=== PATIENT | female | born 1960 | race Caucasian/White ===

== ENCOUNTER 2019-12-10 11:23 | Outpatient (CLI) | payer OTHER, BC, SELFPAY ==
--- NOTE | ~2019-12-10 | MR_ITS ---
EXAMINATION: MR shoulder LT wo con DATE: 12/10/2019 12:26 INDICATION: Left shoulder pain and weakness TECHNIQUE: Magnetic resonance imaging (MRI) of the left shoulder was performed without intravenous co ntrast. Sequences included axial PD-weighted FS FSE, coronal oblique PD-weighted FS FSE, coronal obli que T2-weighted FS FSE, sagittal PD-weighted FS FSE, and sagittal T1-weighted SE. COMPARISON: 06/04/19 FINDINGS: There is motion artifact or blurring to some degree on all sequences which moderately limits the curr ent study. Coracoacromial arch: The acromion undersurface is curved in morphology (type II). Again seen is a small anterior subacromi al spur at the acromial insertion of the normal coracoacromial ligament. Mild acromioclavicular osteo arthritis. Rotator cuff: Again seen is a partial-thickness tear along the lateral side of the cephalad third of the lesser tub erosity footplate which propagates approximately 1.5 cm medially is a longitudinal intrasubstance spl it tear. There is peripheral subluxation of the long head biceps tendon across the superior medial ri m of the intertubercular groove into the tear defect. Moderate supraspinatus and mild infraspinatus t endinopathy. There is fraying along the bursal side of the supraspinatus tendon along the superior fa cet footplate. There is also some irregularity along the articular side of the tendon with attenuatio n of the distal tendon consistent with additional partial thickness articular sided tear better appre ciated on the prior study. No homogeneous fluid signal intensity tear defect appreciated however ther e was full-thickness contrast imbibition at this location with contrast enhancement of the bursa on t he prior study consistent with a full-thickness perforation which is not evident on the current non a rthrographic images. There is a trace amount of fluid along an intrasubstance delaminating split tear of the infraspinatus tendon which tracks medially to the level of the rim of the glenoid. The teres minor tendon is normal. Normal rotator cuff muscle bulk and signal. Biceps tendon, glenoid labrum and glenohumeral cartilage: Mild tendinopathy without discrete tear of the long head biceps tendon which remains partially sublux ed across the subscapularis tendon tear defect as previously detailed. Again seen is degenerative tea ring of the posterior superior glenoid labrum which appears thickened with irregular margins and with mild increased intrasubstance signal. The more well-defined linear tear at the posterior labrum is n ot appreciated on the current study likely due to the motion and absence of intra-articular contrast. No interval change in a region of relatively deep chondral ulceration without degenerative subarticu lar changes at the posterior and posterosuperior glenoid and along the superomedial aspect of the hum eral head. Fluid: Minimal glenohumeral joint effusion. Large amount of fluid in the subacromial/subdeltoid bursa which could be related to bursitis and/or decompression of the joint fluid through the previous noted full- thickness rotator cuff perforation. No intra-articular loose osteochondral bodies. There does however appear to be an approximately 6 mm loose body in the posterior aspect of the subdeltoid bursa. Bones: Bone alignment is normal. Normal marrow signal with no fracture or pathologic marrow replacing proces s. IMPRESSION: 1. Evaluation significantly more limited due to motion artifact to some degree on all sequences as we ll as the absence of intra-articular contrast. 2. No evident progression of tears of the distal supraspinatus and subscapularis tendons. 3. Mild tendinopathy without discrete tear of the long head biceps tendon which remains subluxed medi ally across the cephalad medial rim of the intertubercular groove across the superior subscapularis t endon tear defect 4. Mild
== END 2019-12-10 11:24 | disposition home or self-care (01) ==
PROVIDERS: PCP Family Medicine; Visit Provider Orthopaedic Surgery
DX: M75.112 Incomplete rotator cuff tear or rupture of left shoulder, not specified as traumatic (principal); M19.012 Primary osteoarthritis, left shoulder
CPT/HCPCS: 73221

== ENCOUNTER → 2020-05-13 10:44 | Outpatient (CLI) | payer OTHER, BC, SELFPAY ==
--- NOTE | ~2020-05-13 | CT_ITS ---
EXAMINATION: CT abdomen pelvis wo/w con DATE: 05/13/2020 11:36 INDICATION: Gross hematuria. TECHNIQUE: Computed tomography (CT) of the abdomen and pelvis was performed without and subsequently with 130 cc Omnipaque 350 intravenous contrast. Automated exposure control and iterative reconstructi on technique were employed. Exam dose: 2111.82 mGy-cm total exam DLP. COMPARISON: None. FINDINGS: There are couple focal areas of tree-in-bud infiltrates in the base of the right lower lobe , likely infectious or postinfectious. The included lower lung zones are otherwise clear. Normal heart size. No pericardial or pleural effusion. There are some surgical clips around the stomach. Diffuse hepatic steatosis. No hepatic, pancreatic, splenic, and adrenal or renal space-occupying mass lesion. Status post cholecystectomy. No bile duct or pancreatic duct dilatation. No pancreatic calcification. Normal splenic size. Normal morphology of the adrenal glands. 4 x 7.5 mm nonobstructing right mid renal calculus. No other urinary tract calculus or hydroureterone phrosis of either kidney. There is mild atherosclerotic calcification of the abdominal aorta and branches but no abdominal aort ic aneurysm. No intraperitoneal or retroperitoneal or pelvic mass lesion or adenopathy or ascites. Small fat-containing umbilical hernia. There is a small right parasagittal supraumbilical hernia containing a small bowel loop, without appa rent obstruction or strangulation. The urinary bladder, uterus and adnexal areas are unremarkable. Normal appendix. There is diverticulosis of left and right colon; no CT evidence of diverticulitis. There is soft tissue prominence at the anorectal junction; recommend clinical correlation with digita l rectal examination to exclude any mass lesion. No bowel obstruction, bowel wall thickening, pneumatosis or intraperitoneal free air is noted otherwi se. Diffuse idiopathic skeletal hyperostosis of the lower thoracic spine. There is severe degenerative disc disease at L4-5 and L5-S1, with associated mild retrolisthesis at L 5-S1. Bilateral hip osteoarthritis, relatively severe on the right. IMPRESSION: 4 x 7.5 mm nonobstructing mid right renal calculus; no other urinary tract calculus or h ydroureteronephrosis Diverticulosis of left and right colon; no evidence of diverticulitis Soft tissue prominence at the anorectal junction; recommend digital rectal examination for correlatio n to exclude any mass lesion Small right parasagittal supraumbilical hernia containing a nonobstructed loop of small bowel Small fat-containing umbilical hernia Status post cholecystectomy Left upper quadrant post-surgical changes Reviewed, dictated and finalized at [facility]. Reviewed, dictated and finalized at [facility]. [facility] IMPRESSION: 4 x 7.5 mm nonobstructing mid right renal calculus; no other urina ry tract calculus or hydroureteronephrosis Diverticulosis of left and right colon; no evidence of diverticulitis Soft tissue prominence at the anorectal junction; recommend digital rectal exam ination for correlation to exclude any mass lesion Small right parasagittal supraumbilical hernia containing a nonobstructed loop of small bowel Small fat-containing umbilical hernia Status post cholecystectomy Left upper quadrant post-surgical changes
[2020-05-13 11:10] LABS: Estimated Glomerular Filt Rate > 60
== END ==
PROVIDERS: PCP Family Medicine; Visit Provider Urology
DX: R31.0 Gross hematuria (principal); Z90.49 Acquired absence of other specified parts of digestive tract; N20.0 Calculus of kidney; K57.30 Diverticulosis of large intestine without perforation or abscess without bleeding; K44.9 Diaphragmatic hernia without obstruction or gangrene
CPT/HCPCS: 74178; Q9967

== ENCOUNTER 2020-06-09 16:38 | Outpatient (CLI) | payer OTHER, BC, SELFPAY ==
--- NOTE | ~2020-06-09 | XR_ITS ---
EXAMINATION: XR abdomen/kub 1V EXAM DATE: 06/09/2020 16:59 INDICATION: Kidney stones. Upper back pain bilaterally. TECHNIQUE: Frontal projection(s) of the abdomen for interpretation. Correlation is made to CT abdomen 05/13/2020. FINDINGS: Some stool overlying the renal contours. Possible right-sided nephrolithiasis, indicated. N onobstructive bowel gas pattern. There are cholecystectomy clips. IMPRESSION: Possible identification of right renal pelvic stone. Reviewed, dictated and finalized at [facility]. [facility]
== END 2020-06-09 16:39 | disposition home or self-care (01) ==
PROVIDERS: PCP Family Medicine; Visit Provider Urology
DX: N20.0 Calculus of kidney (principal)
CPT/HCPCS: 74018

== ENCOUNTER 2024-12-15 10:32 | Emergency (ER) | payer OTHER, SELFPAY ==
[2024-12-15 10:37] VITALS: BP 103/57; PULSE 83; RESP 16; TEMP 36.3; O2SAT 100
--- NOTE | 2024-12-15 10:41 | ED.LOWEXIN ---
HPI - Extremity Injury (Lower) General Stated Complaint: Right Hip Pain/Headache Source: patient and RN notes reviewed Mode of arrival: ambulatory Limitations: no limitations History of Present Illness HPI Narrative: Patient is a 64-year-old female who presents to the [facility] with complaints of fall that occurred on Sunday. Patient states that she was helping her bring and boxes that were delivered from her front porch. She states that her carried in the 1st box and she stood with the screen door open for her to come back with a 2nd box. She states that next thing she knew she must of had a syncopal episode. She woke up on the concrete porch. She believes that she struck her head against the concrete step. She is unsure how long she lost consciousness but does not believe it was a long time as her had still not come back from brain 1st box in. She reports tenderness to the right side of her head and face. She did not go get evaluated after fall. She called her orthopedist this morning due to right hip pain that she believes is due to the fall. He advised that she come to urgent care to get checked out and get an x-ray on her hip. Patient had recent hip replacement in 2022. Patient is currently alert and oriented x4 no obvious neurological deficits. She does report intermittent dizziness and fuzziness in her head since the fall. Related Data Home Medications ?Medication ?Instructions ?Recorded ?Confirmed ?Last Taken ?Type amlodipine 2.5 mg tablet mg PO 11/19/24 11/19/24 Unknown History losartan 100 mg tablet mg PO 11/19/24 11/19/24 Unknown History metformin 1,000 mg tablet mg PO 11/19/24 11/19/24 Unknown History peg 3350-electrolytes 236 ml PO 11/19/24 11/19/24 Unknown History gram-22.74 gram-6.74 gram-5.86 gram solution (GaviLyte-G) pregabalin 100 mg capsule mg PO 11/19/24 11/19/24 Unknown History Allergies Allergy/AdvReac Type Severity Reaction Status Date / Time No Known Allergies Allergy Verified 11/19/24 10:51 Review of Systems Review of Systems: CONSTITUTIONAL: Denies fever, chills, or sweats. EYES: Denies visual changes, redness, or discharge. ENT: Denies otalgia and sore throat CARDIOVASCULAR: Denies chest pain, palpitations, or edema. RESPIRATORY: Denies cough or dyspnea. GASTROINTESTINAL: Denies abdominal pain, nausea, vomiting, or diarrhea. GENITOURINARY: Denies dysuria or hematuria. SKIN: Denies rash or itching. MUSCULOSKELETAL: Reports right hip pain. NEUROLOGIC: Reports headache and dizziness.. Pertinent positives per HPI. [facility] Past Medical History Medical History Gallbladder disorder Diabetes Surgical History Surgical History Previous section History of hip replacement 2022 History of bilateral knee replacement 2009 and 2012 History of cholecystectomy Family History Family History Mother Depression Cerebrovascular accident Father Diabetes mellitus Grandparent Heart disease Hypertension Social History Social History Smoking status: Never smoker Alcohol intake: current Alcohol use details: rare Substance use: never Substance use type: does not use Do You Feel Safe in your Home?: Yes Lack of Transportation: No Lack of Food: Never True Current Housing: I Have Housing Concerned About Future Housing: No Difficulty Paying Gas/Electric Bills: No Difficulty Paying for Meds: No Currently Unemployed: No Education: Bachelor's Degree Difficulty w/ Childcare or Family Care: No Living arrangements: with family Occupation/Education: occupation 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 There is no relevant family history pertinent to the patient complaint. Exam Narrative: GENERAL: This is a well-nourished, well-developed patient, in no apparent distress. HEAD: normocephalic, atraumatic. EYES: Sclera clear/white. Vision is grossly intact. EARS: External ears normal. Hearing grossly intact. NOSE: External nose normal with no obvious nasal discharge, nares without redness, no rhinorrhea. THROAT: Mucous membranes moist, posterior pharynx clear. NECK: Neck supple, non-tender without lymphadenopathy, masses or thyromegaly. CARDIOVASCULAR: Regular rate and rhythm without murmurs, gallops, or rubs. RESPIRATORY: Clear to auscultation. Breath sounds equal bilaterally. No wheezes, rales, or rhonchi. GASTROINTESTINAL: Abdomen soft, non-tender, nondistended. Bowel sounds are active. No hepato-splenomegaly, or palpable masses. No guarding. SKIN: warm, intact with no suspicious lesions or rash, good texture and turgor. NEURO: awake, alert, and oriented to person, place and time. There were no obvious focal neurologic abnormalities. EXTREMITIES: Right hip tenderness. Distal neurovascular and motor status intact. Course Course Level of Care: Express Care Visit Vital Signs Vital signs: Vital Signs Temperature 97.3 F L 12/15/24 10:37 Pulse Rate 83 12/15/24 10:37 Respiratory Rate 16 12/15/24 10:37 Blood Pressure 103/57 L 12/15/24 10:37 Pulse Oximetry 100 12/15/24 10:37 Oxygen Delivery Room Air 12/15/24 10:37 Temperature 97.3 F L 12/15/24 10:37 Pulse Rate 83 12/15/24 10:37 Respiratory Rate 16 12/15/24 10:37 Blood Pressure 103/57 L 12/15/24 10:37 Pulse Oximetry 100 12/15/24 10:37 Oxygen Delivery Room Air 12/15/24 10:37 Reviewed Transfer Transfered to: [place] Transportation: Other (Private vehicle, patient AMA to EMS transport as requested by NUTRITIONAL ASSISTANT) Transfer rationale: Appropriate testing, treatment, and evaluation for head injury and syncope Accepting physician: NICOLE Munoz MDM - Extremity Injury (Lower) MDM Narrative Medical decision making narrative: patient sure acted to [place] [facility] for appropriate testing, treatment, and evaluation of her head injury and syncope. Accepting provider is NICOLE Munoz. Patient was advised EMS transport due to dizziness with recent head injury and syncope but declined. Differential Diagnosis Differential diagnosis: Likely fracture of hip and other (hip dislocation, hip sprain, hip contusion, intracranial hemorrhage, cervical fracture, head/face contusion) Critical Care Time Critical Care Time Critical Care Time: No Discharge Plan Discharge Clinical Impression: Syncope and collapse, Acute pain of right hip Head injury Qualifiers: Encounter type: initial encounter Qualified Code(s): S09.90XA - Unspecified injury of head, initial encounter Patient Disposition: Acute Care Hospital Condition: Stable Additional Instructions: Go directly to [place] emergency department for evaluation. Patient Language: [place] Prescriptions: No Action metformin 1,000 mg tablet PO pregabalin 100 mg capsule PO losartan 100 mg tablet PO amlodipine 2.5 mg tablet PO peg 3350-electrolytes [GaviLyte-G] 236-22.74-6.74 -5.86 gram recon soln PO Follow-up/Referrals: Simone,MD Naeem [Primary Care Provider] - Time of Disposition: 11:00
== END 2024-12-15 10:54 | disposition short-term general hospital (02) ==
PROVIDERS: Emergency Provider Nurse Practitioner; PCP Family Medicine
DX: R55 Syncope and collapse (principal); M25.551 Pain in right hip; E11.9 Type 2 diabetes mellitus without complications; Z79.84 Long term (current) use of oral hypoglycemic drugs
CPT/HCPCS: 99212; G0463

== ENCOUNTER 2024-12-15 11:21 | Emergency (ER) | payer OTHER, SELFPAY ==
[2024-12-15] VITALS (8 sets, daily range): BP systolic 101–127; BP diastolic 51–80; PULSE 70–91; RESP 12–18; TEMP 36.4–36.5; O2SAT 100
--- NOTE | ~2024-12-15 | XR_ITS ---
XR hip RT 2V w AP pelvis Ordering provider: Kamilah Steele PA-C History: . fall, hip pain, FALL X2DAYS . Comparison: None. FINDINGS: BONES: No acute fracture or dislocation. HIP JOINT SPACES: Right hip arthroplasty. Mild left hip osteoarthritic changes. SACROILIAC JOINT SPACES/LUMBAR SPINE: The sacroiliac joint spaces shows mild sacroiliitis. Mild degen erative changes of the visualized lower lumbar spine. PUBIC SYMPHYSIS: Normal. SOFT TISSUES: Normal. IMPRESSION: No acute osseous abnormality pelvis and right hip. Reviewed, dictated and finalized at location A.
--- NOTE | ~2024-12-15 | XR_ITS ---
XR chest 1V portable Ordering provider: Kamilah Steele PA-C History: 64 years Female with . syncope . Comparison: None. FINDINGS: MEDIASTINUM: The cardiac silhouette is not enlarged. LUNGS: No infiltrates, effusions or pneumothorax. OTHER: No free air under the diaphragm. Degenerative changes of the shoulders IMPRESSION: No acute cardiopulmonary pathology. Reviewed, dictated and finalized at location A.
--- NOTE | ~2024-12-15 | CT_ITS ---
CT cervical spine wo con Ordering provider: Kamilah Steele PA-C History: . syncopal episode, fall 2 days ago . Comparison: None. Technique: CT of the cervical spine was performed without contrast. Sagittal and coronal reformatted images were also obtained and reviewed. Automated exposure control and iterative reconstruction daisy hnique were employed. The dose-length product was 316.27 mGy-cm. FINDINGS: VERTEBRAE: No subluxation or acute fracture. The occipital condyles are intact. Degenerative changes of the spine. Kyphosis.. DISC SPACES: Narrowing of the disc C5-C6 and C6-C7. Uncovertebral joint osteoarthritic changes of the same level. Narrowing of the foramina at the same level is noted. PARASPINOUS SOFT TISSUES: Normal. IMPRESSION: No acute osseous abnormality cervical spine. Reviewed, dictated and finalized at location A.
--- NOTE | ~2024-12-15 | CT_ITS ---
CT brain wo con Ordering provider: Kamilah Steele PA-C History: 64 years Female with . syncopal episode, hit head 2 days ago . Comparison: None. Technique: CT of the head without contrast. Radiation reduction technique utilized. The dose-length p roduct was 605.33 mGy-cm. FINDINGS: BRAIN PARENCHYMA AND CSF SPACES: No midline shift, mass effect or hemorrhage. The brain parenchyma a nd CSF spaces are otherwise normal. Empty sella turcica. VISUALIZED PARANASAL SINUSES: Well aerated. MASTOIDS: Well aerated. BONES: The bones appear intact. SOFT TISSUES: Visualized nasopharynx is normal. Superficial soft tissues are normal. IMPRESSION: No acute intracranial findings. Reviewed, dictated and finalized at location A.
--- NOTE | 2024-12-15 13:36 | ECG_ITS ---
Test Date: 2024-12-15 13:55:01 Measurements Intervals [place] Rate: 71 P: 31 TN: 109 QRS: 14 QRSD: 97 T: 33 QT: 371 QTc: 405 Interpretive Statements SINUS RHYTHM WITH SHORT TN INTERVAL BORDERLINE ECG No previous ECG available for comparison Electronically Signed On 12-15-2024 14:12:45 CDT by René Helm D.O.
--- NOTE | 2024-12-15 13:37 | ED_ITS ---
HPI - Fall General Chief Complaint: Fall <Kamilah Steele PA-C - Last Filed: 12/15/24 13:43> Stated Complaint: fall, R. hip pain, brain fog <Kamilah Steele PA-C - Last Filed: 12/15/24 13:43> Time Seen by Provider: 12/15/24 14:06 <Kamilah Steele PA-C - Last Filed: 12/15/24 13:43> Focused HPI: 64 y/o F presents to the ED for syncope and head injury that occurred 2 days ago. 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 She hit the right congregational and right hip on the ground. She believes she passed out for a few seconds. She is not anticoagulated. Her daughter convinced her to come and be seen today. She denies any chest pain, dyspnea, palpitations. GENERAL: Well-appearing, well-nourished, and in no acute distress. HEAD: Normocephalic, atraumatic. BACK: No midline or thoracolumbar spinous tenderness, step-offs or deformities. CHEST: Clear to auscultation. ?No respiratory distress. EXT: Tenderness over lateral aspect of right hip with no obvious deformity. DP pulse 2+. Sensation intact. Full ROM. Pt ambulatory HEART: Regular rate and rhythm.? NEURO: ?Alert and oriented x3. Patient screened in triage and initial orders placed.? ?Additional care and disposition to be based upon?diagnostic testing and treatment. <Kamilah Steele PA-C - Last Filed: 12/15/24 13:43> History of Present Illness HPI Narrative: Agree with the above with the following additions/corrections: No bowel/bladder incontinence. No tongue trauma. No seizure activity. Had returned back to baseline immediately. Had initially bled from a forehead/face abrasion, now healed. Daughter concerned for cognitive changes. Has been experiencing brain fog. Has been forgetful, sometimes with slurred/stuttering speech. No history CHF. Did not feel short of breath. No chest pain. No dysuria, urgency, frequency, hematuria. PCP previously Dr Beckman, now Dr Nichols. <Myrna Alexander MD - Last Filed: 12/18/24 01:36> Related Data Home Medications: Home Medications ?Medication ?Instructions ?Recorded ?Confirmed ?Last Taken ?Type amlodipine 2.5 mg tablet mg PO 11/19/24 11/19/24 Unknown History losartan 100 mg tablet mg PO 11/19/24 11/19/24 Unknown History metformin 1,000 mg tablet mg PO 11/19/24 11/19/24 Unknown History peg 3350-electrolytes 236 ml PO 11/19/24 11/19/24 Unknown History gram-22.74 gram-6.74 gram-5.86 gram solution (GaviLyte-G) pregabalin 100 mg capsule mg PO 11/19/24 11/19/24 Unknown History <Kamilah Steele PA-C - Last Filed: 12/15/24 13:43> Allergies/Adverse Reactions: Allergies Allergy/AdvReac Type Severity Reaction Status Date / Time No Known Allergies Allergy Verified 12/15/24 14:30 <Kamilah Steele PA-C - Last Filed: 12/15/24 13:43> [facility] Past Medical History Medical History: Medical History Gallbladder disorder Diabetes <Kamilah Steele PA-C - Last Filed: 12/15/24 13:43> Surgical History Surgical History: Surgical History Previous section History of hip replacement 2022, [place] History of bilateral knee replacement 2009 and 2012 History of cholecystectomy <Kamilah Steele PA-C - Last Filed: 12/15/24 13:43> Family History Family History: Family History Mother Depression Cerebrovascular accident Father Diabetes mellitus Grandparent Heart disease Hypertension <Kamilah Steele PA-C - Last Filed: 12/15/24 13:43> Social History Social History: Social History (Updated 12/18/24 @ 01:33 by Myrna Alexander MD) Social History: Has a daughter Smoking status: Never smoker Alcohol intake: current Alcohol use details: rare Substance use: never Substance use type: does not use Do You Feel Safe in your Home?: Yes Lack of Transportation: No Lack of Food: Never True Current Housing: I Have Housing Concerned About Future Housing: No Difficulty Paying Gas/Electric Bills: No Difficulty Paying for Meds: No Currently Unemployed: No Education: Bachelor's Degree Difficulty w/ Childcare or Family Care: No Living arrangements: with family Occupation/Education: occupation 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 HEAD: Normocephalic, atraumatic. EYES: Non injected, non icteric ENT: Nares clear, no rhinorrhea or epistaxis. Gross auditory acuity intact. Tacky mucous membranes. NECK: Supple. No meningismus. CHEST: Speaking in full sentences. No respiratory distress. HEART: Regular rate and rhythm. . ABDOMEN: Soft, nondistended. EXTREMITIES: Normal range of motion. No lower extremity edema. SKIN: Warm, dry, no rash. NEURO: No focal deficits. Alert and oriented. Answering questions. Following commands. Normal speech without aphasia or dysarthria. PSYCH: Normal mood and affect. <Myrna Alexander MD - Last Filed: 12/18/24 01:36> Course Vital Signs Vital signs: Vital Signs Temperature 97.7 F 12/15/24 11:37 Pulse Rate 88 12/15/24 11:37 Respiratory Rate 18 12/15/24 11:37 Blood Pressure 108/56 L 12/15/24 11:37 Pulse Oximetry 100 12/15/24 11:37 Oxygen Delivery Room Air 12/15/24 11:37 Temperature 97.5 F L 12/15/24 14:18 Pulse Rate 80 12/15/24 17:17 Respiratory Rate 18 12/15/24 17:17 Blood Pressure 127/73 12/15/24 17:17 Pulse Oximetry 100 12/15/24 17:17 Oxygen Delivery Room Air 12/15/24 14:18 <Kamilah Steele PA-C - Last Filed: 12/15/24 13:43> Vital Signs Temperature 97.7 F 12/15/24 11:37 Pulse Rate 88 12/15/24 11:37 Respiratory Rate 18 12/15/24 11:37 Blood Pressure 108/56 L 12/15/24 11:37 Pulse Oximetry 100 12/15/24 11:37 Oxygen Delivery Room Air 12/15/24 11:37 Temperature 97.5 F L 12/15/24 14:18 Pulse Rate 80 12/15/24 17:17 Respiratory Rate 18 12/15/24 17:17 Blood Pressure 127/73 12/15/24 17:17 Pulse Oximetry 100 12/15/24 17:17 Oxygen Delivery Room Air 12/15/24 14:18 <Myrna Alexander MD - Last Filed: 12/18/24 01:36> MDM - Fall MDM Narrative Medical decision making narrative: Patient presents after she had a syncopal episode over the weekend. Delayed presentation. In the emergency department she is afebrile with vital signs notable for mild low diastolic blood pressure though mean arterial pressure is 73 and this improved without intervention. Normocytic anemia with no prior for comparison. [place] Syncope Rule: Congestive heart failure history: No Hematocrit <30%: No EKG abnormal (changed or any non-sinus rhythm): No SOB symptoms: No SBP <90mmHg at triage: No Patient has an VIDAL based on comparison to previous creatinine. 1 L IV fluids ordered. This should also help given the fact that her orthostatic vital signs did show heart rate and blood pressure changes. Although patient is not having any dysuria, urgency, frequency or hematuria, her urinalysis is abnormal and reflexes to culture and patient and her daughter both state that she has been having brain fog. For this reason it is reasonable to treat and await urine culture. However, we extensively discussed that the concerns of cognitive changes that have been going on for longer than the past few days should definitely be addressed with PCP. Given first dose antibiotic in the ED and rest of course prescribed. <Myrna Alexander MD - Last Filed: 12/18/24 01:36> Differential Diagnosis Differential diagnosis: Likely syncope (spectrum of cardiogenic, orthostatic, vasovagal, etc. ), compression fracture, concussion with loss of consciousness and other (hip fracture/dislocation/contusion; ) <Myrna Alexander MD - Last Filed: 12/18/24 01:36> Lab Data Attestation: I reviewed the patient's lab results. <Myrna Alexander MD - Last Filed: 12/18/24 01:36> Result diagrams: 12/15/24 14:19 12/15/24 14:19 <Kamilah Steele PA-C - Last Filed: 12/15/24 13:43> Labs: Lab Results 12/15/24 Range/Units 14:19 WBC 7.9 (4.5-10.0) K/mm3 RBC 3.84 L (4.2-5.4) M/mm3 Hgb 11.5 L (12.0-15.0) g/dL Hct 36.7 L (37.0-47.0) % MCV 95.6 (80-100) fl MCH 29.9 (26-34) pg MCHC 31.3 L (32-36) g/dl RDW 14.2 (11.5-14.5) % Plt Count 277 (150-375) k/mm3 MPV 10.4 (7.4-10.4) fl Immature Gran % (Auto) 0.3 (0-0.5) % Neut % (Auto) 56.0 (45.5-73.1) % Lymph % (Auto) 33.2 (18.3-44.2) % [place] % (Auto) 8.2 (2.6-8.5) % Eos % (Auto) 1.8 (0-4.4) % Baso % (Auto) 0.5 (0.2-1.2) % Lymph # (Auto) 2.63 (0.9-3.2) K/mm3 [place] # (Auto) 0.7 H (0.1-0.6) K/mm3 Eos # (Auto) 0.1 (0-0.3) K/mm3 Baso # (Auto) 0.0 (0.0-0.1) K/mm3 Abs Immat Gran (auto) 0.02 (0.00-0.031) K/mm3 Absolute Neuts (auto) 4.5 (1.3-6.7) K/mm3 Absolute Nucleated RBC 0.000 (0.0-0.012) K/mm3 Nucleated RBC % 0.0 (0.0-0.2) % PT 14.3 (11.1-14.7) Seconds INR 1.1 APTT 30.4 (22.3-36.8) Seconds Sodium 138 (137-145) mmol/L Potassium 4.4 (3.4-5.0) mmol/L Chloride 107 (98-107) mmol/L Carbon Dioxide 24 (22-30) mmol/L Anion Gap 7 (4-12) mmol/L BUN 22 H (7-17) mg/dL Creatinine 1.09 H (0.7-1.0) mg/dL Estim Creat Clear Calc 47 ml/min Estimated GFR 50 L (59 - ) Glucose 71 (65-110) mg/dL Calcium 9.4 (8.4-10.2) mg/dL Magnesium 2.0 (1.6-2.3) mg/dL Total Bilirubin 0.7 (0.2-1.3) mg/dL AST 27 (14-36) U/L ALT 19 (6-35) U/L Alkaline Phosphatase 65 (38-126) U/L Troponin I < 0.012 (0.000-0.034) ng/mL NT-Pro-B Natriuret Pep 53 (19.9-100) pg/mL Total Protein 6.7 (6.3-8.2) g/dL Albumin 4.0 (3.5-5.1) g/dL Urine Color Yellow (Yellow) Urine Appearance Clear (Clear) Urine pH 6.0 (5.0-9.0) Ur Specific [place] 1.018 (1.001-1.035) Urine Protein 2+ H (Negative) mg/dL Urine Glucose (UA) Negative (Negative) mg/dL Urine Ketones Trace H (Negative) mg/dL Ur Blood (Man) Negative (Negative) Urine Nitrate Negative (Negative) Urine Bilirubin Negative (Negative) Urine Urobilinogen 0.2 (<2.0) mg/dL Add Ur Microanalysis Reviewed Leukocyte Esterase Rfl 2+ H (Negative) HIEU/UL Urine RBC 6-10 H (0-2) /hpf Urine WBC 21-50 H (0-3) /hpf Ur Squamous Epith Cells Occasional (Few) /hpf Urine Bacteria Rare /hpf Urine Casts 0-2 <Kamilah Steele PA-C - Last Filed: 12/15/24 13:43> Lab Results 12/15/24 Range/Units 14:19 WBC 7.9 (4.5-10.0) K/mm3 RBC 3.84 L (4.2-5.4) M/mm3 Hgb 11.5 L (12.0-15.0) g/dL Hct 36.7 L (37.0-47.0) % MCV 95.6 (80-100) fl MCH 29.9 (26-34) pg MCHC 31.3 L (32-36) g/dl RDW 14.2 (11.5-14.5) % Plt Count 277 (150-375) k/mm3 MPV 10.4 (7.4-10.4) fl Immature Gran % (Auto) 0.3 (0-0.5) % Neut % (Auto) 56.0 (45.5-73.1) % Lymph % (Auto) 33.2 (18.3-44.2) % [place] % (Auto) 8.2 (2.6-8.5) % Eos % (Auto) 1.8 (0-4.4) % Baso % (Auto) 0.5 (0.2-1.2) % Lymph # (Auto) 2.63 (0.9-3.2) K/mm3 [place] # (Auto) 0.7 H (0.1-0.6) K/mm3 Eos # (Auto) 0.1 (0-0.3) K/mm3 Baso # (Auto) 0.0 (0.0-0.1) K/mm3 Abs Immat Gran (auto) 0.02 (0.00-0.031) K/mm3 Absolute Neuts (auto) 4.5 (1.3-6.7) K/mm3 Absolute Nucleated RBC 0.000 (0.0-0.012) K/mm3 Nucleated RBC % 0.0 (0.0-0.2) % PT 14.3 (11.1-14.7) Seconds INR 1.1 APTT 30.4 (22.3-36.8) Seconds Sodium 138 (137-145) mmol/L Potassium 4.4 (3.4-5.0) mmol/L Chloride 107 (98-107) mmol/L Carbon Dioxide 24 (22-30) mmol/L Anion Gap 7 (4-12) mmol/L BUN 22 H (7-17) mg/dL Creatinine 1.09 H (0.7-1.0) mg/dL Estim Creat Clear Calc 47 ml/min Estimated GFR 50 L (59 - ) Glucose 71 (65-110) mg/dL Calcium 9.4 (8.4-10.2) mg/dL Magnesium 2.0 (1.6-2.3) mg/dL Total Bilirubin 0.7 (0.2-1.3) mg/dL AST 27 (14-36) U/L ALT 19 (6-35) U/L Alkaline Phosphatase 65 (38-126) U/L Troponin I < 0.012 (0.000-0.034) ng/mL NT-Pro-B Natriuret Pep 53 (19.9-100) pg/mL Total Protein 6.7 (6.3-8.2) g/dL Albumin 4.0 (3.5-5.1) g/dL Urine Color Yellow (Yellow) Urine Appearance Clear (Clear) Urine pH 6.0 (5.0-9.0) Ur Specific [place] 1.018 (1.001-1.035) Urine Protein 2+ H (Negative) mg/dL Urine Glucose (UA) Negative (Negative) mg/dL Urine Ketones Trace H (Negative) mg/dL Ur Blood (Man) Negative (Negative) Urine Nitrate Negative (Negative) Urine Bilirubin Negative (Negative) Urine Urobilinogen 0.2 (<2.0) mg/dL Add Ur Microanalysis Reviewed Leukocyte Esterase Rfl 2+ H (Negative) HIEU/UL Urine RBC 6-10 H (0-2) /hpf Urine WBC 21-50 H (0-3) /hpf Ur Squamous Epith Cells Occasional (Few) /hpf Urine Bacteria Rare /hpf Urine Casts 0-2 <Myrna Alexander MD - Last Filed: 12/18/24 01:36> Imaging Data Radiologist's impression: IMPRESSION: No acute intracranial findings. IMPRESSION: No acute osseous abnormality cervical spine. IMPRESSION: No acute osseous abnormality pelvis and right hip. IMPRESSION: No acute cardiopulmonary pathology. <Myrna Alexander MD - Last Filed: 12/18/24 01:36> ECG Data EKG #1: Attestation: I personally reviewed and interpreted this ECG as follows: < Myrna Alexander MD - Last Filed: 12/18/24 01:36> ECG completion date: 12/15/24 <Myrna Alexander MD - Last Filed: 12/18/24 01:36> ECG completion time: 15:37 <Myrna Alexander MD - Last Filed: 12/18/24 01:36> Interpretation: Normal sinus rhythm at a rate of 71 beats per minute. Short CA interval at 1:09 a.m. millisecond. QRS 97. QT/QTC 371/394. Good R-wave progression across the precordial leads. No T-wave inversions. <Myrna Alexander MD - Last Filed: 12/18/24 01:36> Discharge Plan Discharge Clinical Impression: Syncope, Normocytic anemia, VIDAL (acute kidney injury), Abnormal urinalysis <Kamilah Steele PA-C - Last Filed: 12/15/24 13:43> Patient Disposition: Home <Kamilah Steele PA-C - Last Filed: 12/15/24 13:43> Condition: Stable <Kamilah Steele PA-C - Last Filed: 12/15/24 13:43> Instructions: Antibiotic Form, Acute Kidney Injury (DC), Urinary Tract Infection in Women (DC), Syncope (DC), Anemia (ED) <Kamilah Steele PA-C - Last Filed: 12/15/24 13:43> Additional Instructions: As we discussed, you showed evidence of a mild acute kidney injury likely due to dehydration and this also explains your symptoms of fainting/passing out on a syncope. We discussed how this was likely orthostatic given your vital signs also showed signs of this as a cause even today, likely due to dehydration. You were given IV fluids. You also had some evidence of a possible urinary tract infection and so out of an abundance of precaution given you have been having some mental status changes, we are treating. You received your 1st dose in the emergency department with rest the course prescribed. As we discussed, follow-up with your primary care physician especially did discuss if there is lingering concern for brain fog/cognition. If you need the name of a primary care physician 1 is listed below. Return to the emergency department with any new, worsening, unmanaged symptoms. Maintain your hydration by making sure you drink plenty of fluids especially when it is warm outside. Acetaminophen/Tylenol (maximum 4000 mg per day) is safe to take with NSAIDs (ibuprofen/Motrin) for pain relief. <Kamilah Steele PA-C - Last Filed: 12/15/24 13:43> Patient Language: Ghanaian <Kamilah Steele PA-C - Last Filed: 12/15/24 13:43> Prescriptions: New sulfamethoxazole-trimethoprim [Bactrim DS] 800-160 mg tablet 1 tablet PO Q12H 5 Days Qty: 9 0RF Rx Instructions: Received 1st dose in the ED 12/15 afternoon ibuprofen 600 mg tablet 600 mg PO TID PRN (Reason: pain) Qty: 30 0RF acetaminophen 500 mg capsule 1,000 mg PO Q6H PRN (Reason: pain) Qty: 30 0RF No Action metformin 1,000 mg tablet PO pregabalin 100 mg capsule PO losartan 100 mg tablet PO amlodipine 2.5 mg tablet PO peg 3350-electrolytes [GaviLyte-G] 236-22.74-6.74 -5.86 gram recon soln PO <Kamilah Steele PA-C - Last Filed: 12/15/24 13:43> Follow-up/Referrals: Simone,MD Naeem [Primary Care Provider] - Lemuel Barraza MD [Physician] - <Kamilah Steele PA-C - Last Filed: 12/15/24 13:43> Stand Alone Forms: Work/School Release IP <Kamilah Steele PA-C - Last Filed: 12/15/24 13:43> Time of Disposition: 15:47 <Kamilah Steele PA-C - Last Filed: 12/15/24 13:43> 15:47 <Myrna Alexander MD - Last Filed: 12/18/24 01:36>
[2024-12-15 14:32] LABS: Basophils Percent Auto 0.5 % (0.2-1.2); Eosinophils Absolute Auto 0.1 K/mm3 (0-0.3); Eosinophils Percent Auto 1.8 % (0-4.4); Hematocrit 36.7 % (37.0-47.0); Hemoglobin 11.5 g/dL (12.0-15.0); Immature Granulocyte Absolute 0.02 K/mm3 (0.00-0.031); Immature Granulocyte Percent A 0.3 % (0-0.5); Lymphocytes Absolute Auto 2.63 K/mm3 (0.9-3.2); Lymphocytes Percent Auto 33.2 % (18.3-44.2); Mean Corpuscular HGB Conc 31.3 g/dl (32-36); Mean Corpuscular Hemoglobin 29.9 pg (26-34); Mean Corpuscular Volume 95.6 fl (80-100); Mean Platelet Volume 10.4 fl (7.4-10.4); Monocytes Absolute Auto 0.7 K/mm3 (0.1-0.6); Monocytes Percent Auto 8.2 % (2.6-8.5); Neutrophils Absolute Auto 4.5 K/mm3 (1.3-6.7); Platelet Count Result 277 k/mm3 (150-375); Red Blood Count 3.84 M/mm3 (4.2-5.4); Red Cell Distribution Width 14.2 % (11.5-14.5); White Blood Count 7.9 K/mm3 (4.5-10.0)
[2024-12-15 14:42] LABS: Add Urine Microscopic? YES; Appearance Urine Clear (Clear); Bacteria Urine Rare /hpf; Bilirubin Urine Negative (Negative); Blood Urine Negative (Negative); Color Urine Yellow (Yellow); Glucose Urine UA Negative (Negative); Ketones Urine Trace mg/dL (Negative); Leukocyte Esterase Ur 2+ LEU/UL (Negative); Need Manual Microscopic Reviewed; Nitrate Urine Negative (Negative); Non Pathogenic Casts 0-2; Protein Urine 2+ mg/dL (Negative); Specific Grav Ur 1.018 (1.001-1.035); Squamous Epithelial Cell Urine Occasional /hpf (Few); Urobilinogen Urine 0.2 mg/dL (<2.0); WBC Urine 21-50 /hpf (0-3)
[2024-12-15 14:44] LABS: Alanine Aminotransferase 19 U/L (6-35); Alkaline Phosphatase 65 U/L (38-126); Anion Gap 7 mmol/L (4-12); Aspartate Amino Transferase 27 U/L (14-36); Bilirubin,Total 0.7 mg/dL (0.2-1.3); Blood Urea Nitrogen 22 mg/dL (7-17); Calcium 9.4 mg/dL (8.4-10.2); Carbon Dioxide 24 mmol/L (22-30); Chloride 107 mmol/L (98-107); Estimated CRCL calculation 47 ml/min; Estimated Glomerular Filt Rate 50; Glucose 71 mg/dL (65-110); Potassium 4.4 mmol/L (3.4-5.0); Sodium 138 mmol/L (137-145); Total Protein 6.7 g/dL (6.3-8.2)
[2024-12-15 14:51] LABS: INR 1.1; Prothrombin Time 14.3 Seconds (11.1-14.7)
[2024-12-15 14:52] LABS: Partial Thromboplastin Time 30.4 Seconds (22.3-36.8)
[2024-12-15 14:56] LABS: NT Pro B Type Natriuretic Pept 53 pg/mL (19.9-100); Troponin I < 0.012 ng/mL (0.000-0.034)
[2024-12-15] MEDS: SODIUM CHLORIDE 0.9% IV 1,000 ML 999 ML IV CONT (15:41)
[2024-12-15] MEDS: SULFAMETHOXAZOLE/TRIMETHOPRIM 800/160 MG DS TABLET 1 TAB PO (15:42)
== END 2024-12-15 17:18 | disposition home or self-care (01) ==
PROVIDERS: Physician Assistant; Emergency Provider Student in an Organized Health Care Education/Training Program; PCP Family Medicine
DX: N17.9 Acute kidney failure, unspecified (principal); R55 Syncope and collapse; D64.9 Anemia, unspecified; R82.998 Other abnormal findings in urine; E11.9 Type 2 diabetes mellitus without complications; Z96.649 Presence of unspecified artificial hip joint; Z96.653 Presence of artificial knee joint, bilateral; Z79.84 Long term (current) use of oral hypoglycemic drugs; Z79.899 Other long term (current) drug therapy
CPT/HCPCS: 36415; 70450; 71045; 72125; 73502; 80053; 81001; 83735; 83880; 84484; 85025; 85610; 85730; 87086; 93005; 96360; 99284; A9270; J7030

== ENCOUNTER 2025-01-29 03:08 | Day surgery (SDC) | payer OTHER, SELFPAY ==
[2025-01-14 13:49] VITALS: BMI 29.1
--- OUTSIDE RECORDS SUMMARY | 2025-01-29 03:09 | XMS_ITS | Clinical Summary ---
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 This disclosure is being madepursuant to the Care Everywhere program and may not contain all informatio navailable regarding this patient. 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 Gender Identity Not on file Sexual Orientation Not on file Plan of Treatment Health Maintenance Due Date Last Done Comments BONE DENSITY TESTING 1959 COLOGUARD (AGES 45-75) - COL ON CA SCREENING 1959 COLON MONITORING 1959 COLONOSCOPY - COLON CA SCREENING 1959 CT COLONOGRAPHY - COLON CA SCREENING 1959 Colorectal Cancer Screening 1959 FIT - COLON CA SCREENING 1959 FLEX SIG - COLON CA SCREENING 1959 LIPID TESTING 1959 MAMMOGRAM 1959 HIV SCREENING 12/03/1974 HEPATITIS C SCREENING 11/29/1977 DTAP/TDAP/TD VACCINES (1 - Tdap) 12/03/1978 PNEUMOCOCCAL VACCINE 50+ (1 of 1 - PCV) 12/03/2009 ZOSTER VACCINE (1 of 2) 12/03/2009 COVID-19 VACCINE ( - 2023-2 5 season) 2024 DEPRESSION SCREENING 06/25/2024 INFLUENZA VACCINE (#1) 2025 Respiratory Syncytial Virus (RSV) Vaccine Pt: or over 60 yrs (1 - 1-dose 75+ series) 12/03/2034 HEPATITIS B VACCINE Aged Out No longe r eligible based on patient's age to complete this topic HIB VACCINE Aged Out No longer eligi ble based on patient's age to complete this topic HPV VACCINE Aged Out No longer eligi ble based on patient's age to complete this topic MENINGOCOCCAL (Group B) VACC INE SHARED DECISION-MAKING Aged Out No longer eligibl e based on patient's age to complete this topic MENINGOCOCCAL GROUPS A/C/Y/W VACCINE Aged Out No longer eligible b ased on patient's age to complete this topic
[2025-01-29 06:55] VITALS: BP 120/64; PULSE 74; RESP 18; TEMP 36.2; O2SAT 100
[2025-01-29] MEDS: LACTATED RINGERS 1,000 ML 150 ML IV CONT (07:13)
[2025-01-29] MEDS: DEXTROSE 50% 25 GM/50 ML SYRINGE IV PUSH (07:19)
--- NOTE | 2025-01-29 07:30 | P.PNAN_ITS ---
Anes - Initial Pre Proc Eval Procedure: Operation Date: 01/29/25 08:00 Proposed Procedures p Screening Colonoscopy - Alvin Boggs MD Date/Time: 01/29/25 07:30 Surgeon: Alvin Boggs MD Pre Op Diagnosis: Encounter for screening for malignant neoplasm of Patient Data Age: 64 Gender: F Height: 1.65 m Weight: 79.8 kg Last Vital Signs Temp 36.2 C L 01/29/25 06:55 Pulse 74 01/29/25 06:55 Resp 18 01/29/25 06:55 BP 120/64 01/29/25 06:55 Pulse Ox 100 01/29/25 06:55 O2 Del Method Room Air 01/29/25 06:55 Allergies Allergy/AdvReac Type Severity Reaction Status Date / Time No Known Allergies Allergy Verified 01/29/25 06:53 Home Medications ?Medication ?Instructions ?Recorded ?Confirmed ?Type amlodipine 2.5 mg tablet 2.5 mg PO DAILY 11/19/24 01/29/25 History losartan 100 mg tablet 100 mg PO DAILY 11/19/24 01/29/25 History metformin 1,000 mg tablet 1,000 mg PO DAILY 11/19/24 01/29/25 History pregabalin 100 mg capsule 100 mg PO Q12H 11/19/24 01/29/25 History acetaminophen 500 mg capsule 1,000 mg (2 x 500 mg) PO Q6H PRN 12/15/24 01/14/25 Rx pain #30 caps tirzepatide 10 mg/0.5 mL 10 mg subcut WEEKLY 01/14/25 01/29/25 History subcutaneous pen injector (Mounjaro) Laboratory Tests 01/29/25 07:06 POC Capillary Glucose 67 mg/dl (65-105) Patient hx anesthesia problems: none Family hx anesthesia problems: none Results Review: All pre-operative results and documents have been reviewed as part of the pre- operative evaluation. [facility] Past Medical History Medical History Gallbladder disorder Diabetes Surgical History Surgical History Previous section History of hip replacement 2022, [place] History of bilateral knee replacement 2009 and 2012 History of cholecystectomy Family History Family History Mother Depression Cerebrovascular accident Father Diabetes mellitus Grandparent Heart disease Hypertension Social History Social History Social History: Has a daughter Smoking status: Never smoker Alcohol intake: never Alcohol use details: rare Substance use: never Substance use type: does not use Current Housing: Decline to Answer Concerned About Future Housing: Decline to Answer Difficulty Paying Gas/Electric Bills: Decline to Answer Difficulty Paying for Meds: Decline to Answer Currently Unemployed: Decline to Answer Education: Decline to Answer Difficulty w/ Childcare or Family Care: No Living arrangements: with family Occupation/Education: occupation 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 Informed Consent: The patient's anesthetic plan and its attendant risks and benefits were discussed with the patient/family/POA. Questions were solicited and answers provided to the satisfaction of the patient/family/POA.
--- NOTE | 2025-01-29 07:51 | PM.IMHP ---
H&P: HPI History of Present Illness Date/Time: 01/29/25 07:51 Chief Complaint: Screening colonoscopy Narrative: This is the patient's 2nd colonoscopy after 18 years. An attempt was made at another institution a few months ago but he was unsuccessful due to excessive looping and / or narrowing. There are no GI symptoms and there is no family history of colorectal cancer. Review of Systems Review of Systems: All systems reviewed & are unremarkable except as noted in HPI and below PMFSH Past Medical History Medical History Gallbladder disorder Diabetes Surgical History Surgical History Previous section History of hip replacement 2022, [place] History of bilateral knee replacement 2009 and 2012 History of cholecystectomy Family History Family History Mother Depression Cerebrovascular accident Father Diabetes mellitus Grandparent Heart disease Hypertension Social History Social History Social History: Has a daughter Smoking status: Never smoker Alcohol intake: never Alcohol use details: rare Substance use: never Substance use type: does not use Current Housing: Decline to Answer Concerned About Future Housing: Decline to Answer Difficulty Paying Gas/Electric Bills: Decline to Answer Difficulty Paying for Meds: Decline to Answer Currently Unemployed: Decline to Answer Education: Decline to Answer Difficulty w/ Childcare or Family Care: No Living arrangements: with family Occupation/Education: occupation 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 Meds Home Medications and Allergies Home Medications ?Medication ?Instructions ?Recorded ?Confirmed ?Type amlodipine 2.5 mg tablet 2.5 mg PO DAILY 11/19/24 01/29/25 History losartan 100 mg tablet 100 mg PO DAILY 11/19/24 01/29/25 History metformin 1,000 mg tablet 1,000 mg PO DAILY 11/19/24 01/29/25 History pregabalin 100 mg capsule 100 mg PO Q12H 11/19/24 01/29/25 History acetaminophen 500 mg capsule 1,000 mg (2 x 500 mg) PO Q6H PRN 12/15/24 01/14/25 Rx pain #30 caps tirzepatide 10 mg/0.5 mL 10 mg subcut WEEKLY 01/14/25 01/29/25 History subcutaneous pen injector (Vinceunmonicaro) Allergies Allergy/AdvReac Type Severity Reaction Status Date / Time No Known Allergies Allergy Verified 01/29/25 06:53 Vital Signs Vital Signs - 24 hr 01/29/25 06:55 Temperature 97.1 F L Pulse Rate 74 Respiratory Rate 18 Blood Pressure 120/64 Pulse Oximetry 100 Oxygen Delivery Room Air Exam Const: General: cooperative and healthy appearing Resp: Effort & Inspection: normal respiratory effort and able to speak in complete sentences Auscultation: clear to auscultation bilaterally Cardio: Rate: regular rate Rhythm: regular rhythm GI: Inspection: normal to inspection GI Palp: No No hepatosplenomegaly present Auscultation: normal bowel sounds Rectal Exam: deferred Skin: General skin exam: normal color Psych: Appearance: grossly normal Mental Status: mental status grossly normal Assessment and Plan Assessment and plan (1) Encounter for screening colonoscopy: Code(s): Z12.11 - Encounter for screening for malignant neoplasm of colon Status: Acute Assessment and Plan: The patient is deemed a good candidate for the procedure. Consent signed. Will proceed.
--- NOTE | 2025-01-29 08:30 | S_PTH ---
PATIENT: Eleanor Scales LOC: [facility] #:[id number] AGE/SX: 64/F ROOM: RE01/29/[address]: Alvin Boggs MD : 1960 BED: DIS: 01/29/2025 SPEC #: [id number] RECD: 01/29/25 09:09 STATUS: MIKE RESebastien #: [id number] AMI: 01/29/25 08:[address]: Alvin Boggs DEPT: [facility] Surgical RECD BY: Hilaria Mustafa ENTERED: 01/29/25 09:10 SP TYPE: Surgical OTHR DR: Naeem NicholsMD Tissues: A - Colon Polypectomy Procedures: Hematoxylin and Eosin Stain Gross and Microscopic Level 4
[2025-01-29 08:32] VITALS: BP 110/68; PULSE 80; RESP 13; O2SAT 100
[2025-01-29 08:42] VITALS: BP 117/67; PULSE 78; RESP 25; O2SAT 100
[2025-01-29 08:52] VITALS: BP 120/70; PULSE 83; RESP 22; O2SAT 100
[2025-01-29 09:02] VITALS: BP 130/61; PULSE 66; RESP 14; O2SAT 100
--- NOTE | 2025-01-29 09:08 | SUR.PHASEII ---
patient's blood glucose was 67, pt was given apple juice and rechecked. First blood glucose after apple juice was 54. Patient's blood sugar was rechecked which is 65 and pt not feeling symptomatic. was notified and no new orders at this time. Patient was educated to eat after discharging and to recheck blood glucose. Discharge paperwork was given and physicians number was addressed if there is any questions or concerns.
== END 2025-01-29 09:18 | disposition home or self-care (01) ==
PROVIDERS: PCP Family Medicine; Referring Provider Physician Assistant; Visit Provider Internal Medicine Gastroenterology
PROC: 0DJD8ZZ Inspection of Lower Intestinal Tract, Via Natural or Artificial Opening Endoscopic (ICD-10-PCS; CPT 45378; principal; 2025-01-29 08:00)
DX: Z12.11 Encounter for screening for malignant neoplasm of colon (principal); D12.2 Benign neoplasm of ascending colon; K57.30 Diverticulosis of large intestine without perforation or abscess without bleeding; K64.2 Third degree hemorrhoids; E11.9 Type 2 diabetes mellitus without complications
CPT/HCPCS: 45381; 45385; 82948; 88305; J2003; J2704; J7120